=== PATIENT | male | born 1965 ===

== ENCOUNTER 2023-03-30 08:45 | Emergency (ER) | payer OTHER ==
[2023-03-30 09:45] LABS: BASOPHILS ABSOLUTE AUTO 0.02 K/uL (0.02-0.10); BASOPHILS PERCENT AUTO 0.3 % (0.0-0.5); EOSINOPHILS ABSOLUTE AUTO 0.17 K/uL (0.04-0.40); EOSINOPHILS PERCENT AUTO 2.3 % (1.0-5.0); HEMATOCRIT 46.5 % (40.0-54.0); HEMOGLOBIN 16.3 g/dL (13.0-18.0); LYMPHOCYTES ABSOLUTE AUTO 2.61 K/uL (1.50-4.00); LYMPHOCYTES PERCENT AUTO 34.6 % (20.0-40.0); MEAN CORPUSCULAR HEMOGLOBIN 30.3 pg (27.0-32.0); MEAN CORPUSCULAR HGB CONC 35.1 g/dL (31.0-35.0); MEAN CORPUSCULAR VOLUME 86 fL (76-96); MEAN PLATELET VOLUME 9.8 fL (6.0-10.0); MONOCYTES ABSOLUTE AUTO 0.59 K/uL (0.20-0.80); MONOCYTES PERCENT AUTO 7.8 % (3.0-10.0); NEUTROPHILS ABSOLUTE AUTO 4.15 K/uL (2.00-7.50); PLATELET COUNT,PLT 225 K/uL (150-400); RED BLOOD CELL COUNT 5.38 M/uL (4.50-6.50); RED CELL DISTRIBUTION WIDTH 13.2 % (11.0-16.0); WHITE BLOOD CELL COUNT,WBC 7.5 K/uL (4.0-11.0)
[2023-03-30 10:03] LABS: PTT,PARTIAL THROMBOPLSTIN TIME 25.6 SECONDS (24.4-33.2)
[2023-03-30 10:05] LABS: A/G RATIO 1.1 (0.8-2.0); ALBUMIN 4.1 g/dL (3.4-5.0); ANION GAP 12.5 mmol/L (5.0-15.0); BILIRUBIN TOTAL 1.2 mg/dL (0.0-1.0); BUN/CREATININE RATIO 21.1 (6-25); CALCIUM 9.6 mg/dL (8.5-10.1); CARBON DIOXIDE,CO2 27.6 mmol/L (21.0-32.0); CREATININE 0.71 mg/dL (0.70-1.30); EST CRCL DRUG DOSING (CG) 104.74 mL/min; POTASSIUM,K 4.1 mmol/L (3.5-5.1); TROPONIN I HIGH SENSITIVITY 36.3 pg/ml (<=60.4)
[2023-03-30 10:10] LABS: PROTHROMBIN TIME 10.1 sec (9.0-11.5)
[2023-03-30] MEDS ORDERED: Ondansetron 4 MG Tab.DIS ONE (10:37)
[2023-03-30] MEDS ORDERED: Ondansetron 4 MG Tab.DIS PO ONE (10:38)
== END 2023-03-30 12:07 | disposition home or self-care (01) ==
LOC: LB.ED 08:45
DX: R42 Dizziness and giddiness (principal); R07.9 Chest pain, unspecified
CPT/HCPCS: 36415; 70450; 70480; 80053; 84484; 85025; 85379; 85610; 85730; 93005; 99285; A9270; Q0162

== ENCOUNTER 2024-03-15 06:15 | Emergency (ER) | payer OTHER ==
[2024-03-15 08:04] LABS: BASOPHILS ABSOLUTE AUTO 0.02 K/uL (0.02-0.10); BASOPHILS PERCENT AUTO 0.2 % (0.0-0.5); EOSINOPHILS ABSOLUTE AUTO 0.02 K/uL (0.04-0.40); EOSINOPHILS PERCENT AUTO 0.2 % (1.0-5.0); HEMATOCRIT 44.8 % (40.0-54.0); HEMOGLOBIN 15.7 g/dL (13.0-18.0); LYMPHOCYTES ABSOLUTE AUTO 2.25 K/uL (1.50-4.00); LYMPHOCYTES PERCENT AUTO 25.6 % (20.0-40.0); MEAN CORPUSCULAR HEMOGLOBIN 30.4 pg (27.0-32.0); MEAN CORPUSCULAR VOLUME 87 fL (76-96); MONOCYTES ABSOLUTE AUTO 0.59 K/uL (0.20-0.80); MONOCYTES PERCENT AUTO 6.7 % (3.0-10.0); NEUTROPHILS ABSOLUTE AUTO 5.91 K/uL (2.00-7.50); NEUTROPHILS PERCENT AUTO 67.3 % (45.0-70.0); PLATELET COUNT,PLT 235 K/uL (150-400); RED BLOOD CELL COUNT 5.17 M/uL (4.50-6.50); RED CELL DISTRIBUTION WIDTH 13.2 % (11.0-16.0); WHITE BLOOD CELL COUNT,WBC 8.8 K/uL (4.0-11.0)
[2024-03-15 08:27] LABS: A/G RATIO 1.2 (0.8-2.0); ALANINE AMINOTRANSFERASE,ALT 47 U/L (12-78); ALBUMIN 3.9 g/dL (3.4-5.0); ALKALINE PHOSPHATASE 87 U/L (46-116); ANION GAP 14.2 mmol/L (5.0-15.0); ASPARTATE AMNIOTRANSFERASE,AST 16 U/L (15-37); BILIRUBIN TOTAL 1.7 mg/dL (0.0-1.0); BLOOD UREA NITROGEN,BUN 18 mg/dL (8-26); BUN/CREATININE RATIO 24.3 (6-25); CALCIUM 8.4 mg/dL (8.5-10.1); CHLORIDE,CL 102 mmol/L (98-107); CREATININE 0.74 mg/dL (0.70-1.30); ESTIMATED GFR 104 mL/min (>60); GLUCOSE RANDOM 246 mg/dL (74-100); POTASSIUM,K 4.2 mmol/L (3.5-5.1); PROTEIN TOTAL,TP 7.2 g/dL (6.4-8.2); SODIUM,NA 137 mmol/L (136-145)
[2024-03-15 08:48] LABS: APPEARANCE,URINE CLOUDY (CLEAR); BILIRUBIN,URINE NEGATIVE (NEGATIVE); COLOR,URINE YELLOW; GLUCOSE,URINE 500 mg/dL (NEGATIVE); KETONES,URINE NEGATIVE (NEGATIVE); LEUKOCYTE ESTERASE,URINE NEGATIVE (NEGATIVE); NITRITE,URINE NEGATIVE (NEGATIVE); OCCULT BLOOD,URINE MODERATE (NEGATIVE); PROTEIN,URINE TRACE mg/dL (NEGATIVE); UROBILINOGEN,URINE 0.2 E.U./dL (0.2-1.0)
[2024-03-15 08:53] LABS: C-REACTIVE PROTEIN < 5.0 mg/L (<5.0)
[2024-03-15 08:54] LABS: PROTHROMBIN TIME 10.3 sec (9.0-11.5)
[2024-03-15 08:59] LABS: AMORPHOUS SEDIMENT,URINE OCCASIONAL /HPF; MUCUS,URINE OCCASIONAL /HPF; RBC,URINE 0-5 /HPF; SQUAMOUS EPITHELIAL CELLS,UR OCCASIONAL /HPF; WBC,URINE 0-5 /HPF
[2024-03-15 09:09] LABS: SEDIMENTATION RATE MANUAL 3 mm/hr (0-20)
[2024-03-15 09:50] VITALS: BP 124/96; PULSE 83
[2024-03-15 10:24] LABS: HEMOGLOBIN A1C 9.3 % (< 5.7)
[2024-03-17 01:27] LABS: ANTI-NUCLEAR AB ANA,IGG ELISA None Detected (None Detected)
[2024-03-17 14:59] LABS: B. BURGDORFERI IGG IMMUNOBLOT Negative (Negative); B. BURGDORFERI IGM IMMUNOBLOT Negative (Negative)
[2024-03-17 20:54] LABS: BABESIA MICROTI BY PCR Not Detected; BABESIA SPECIES BY PCR Not Detected
[2024-03-17 22:05] LABS: ANAPLASMA PHAGOCYTOPHILUM PCR Not Detected; EHRLICHIA CHAFFEENSIS BY PCR Not Detected; EHRLICHIA EWINGII/CANIS BY PCR Not Detected; EHRLICHIA MURIS-LIKE BY PCR Not Detected
== END 2024-03-15 09:40 | disposition home or self-care (01) ==
LOC: LB.ED 06:15
DX: L50.9 Urticaria, unspecified (principal); I10 Essential (primary) hypertension; E78.00 Pure hypercholesterolemia, unspecified; Z79.82 Long term (current) use of aspirin; Z79.899 Other long term (current) drug therapy
CPT/HCPCS: 36415; 80053; 81001; 83036; 85025; 85610; 85651; 85730; 86038; 86140; 86617; 87468; 87469; 87484; 87798; 93005; 99283